=== PATIENT | female | born 1955 | race Caucasian/White ===

== ENCOUNTER → 2016-06-18 | Outpatient (CLI) | payer OTHER ==
--- NOTE | 2016-06-19 12:24 | MAMMOGRAPHY REPORT ---
BILATERAL DIGITAL SCREENING MAMMOGRAM TOMOSYNTHESIS WITH CAD: 06/18/2016 CLINICAL HISTORY: Routine screening. Patient has no complaints. TECHNIQUE: Breast tomosynthesis in addition to standard 2D mammography was performed. Current study was also evaluated with a Computer Aided Detection (CAD) system. COMPARISON: Comparison is made to exams dated: 06/17/2015 mammogram, 12/17/2014 mammogram - [facility], 07/15/2014 mammogram - [facility], and 12/17/2014 ultrasound - [facility]. BREAST COMPOSITION: There are scattered areas of fibroglandular density in both breasts. FINDINGS: There is possible architectural distortion in the 12:00 middle one third of the right cassie ast (best seen on CC tomosynthesis slice 57/83), for which additional spot compression tomosynthesis views with a small paddle and possibly ultrasound are recommended. There is a possible clustered m icrocalcifications in the 12:00 to 1:00 posterior left breast, warranting additional spot magnificat ion views. No other suspicious mass, architectural distortion or cluster of microcalcifications is seen bilater ally. IMPRESSION: ACR BI-RADS CATEGORY 0: INCOMPLETE EVALUATION: NEED ADDITIONAL IMAGING EVALUATION The possible architectural distortion in the 12:00 right breast, and possible cluster of microcalcif ications in the 12:00 to 1:00 posterior left breast need additional imaging evaluation. The patient will be called to schedule an appointment. Approximately 10% of breast cancers are not detected with mammography. A negative mammographic repor t should not delay biopsy if a clinically suggestive mass is present. Chata Arciniega M.D. ay/:06/18/2016 16:35:10 Entomology Professor: Lottie LAYNE(Braeden)(Tim)(BD), [facility] letter sent: Addl Imaging 0 BI-RADS Code: ACR BI-RADS Category 0: Incomplete Evaluation: Need Additional Imaging Evaluation
== END | disposition home or self-care (01) ==
LOC: C.MAMM 14:25
PROVIDERS: ATTEND Family Medicine
DX: Z12.31 Encounter for screening mammogram for malignant neoplasm of breast (principal); R92.8 Other abnormal and inconclusive findings on diagnostic imaging of breast

== ENCOUNTER → 2016-06-28 | Outpatient (CLI) | payer OTHER ==
--- NOTE | 2016-06-28 13:16 | MAMMOGRAPHY REPORT ---
BILATERAL DIGITAL DIAGNOSTIC MAMMOGRAM TOMOSYNTHESIS AND TARGETED RIGHT ULTRASOUND: 06/28/2016 CLINICAL HISTORY: Callback from screening mammogram for possible right breast architectural distorti on and left breast calcifications. TECHNIQUE: Breast tomosynthesis in addition to standard 2D mammography was performed. Spot salvador oracio right CC and MLO tomosynthesis images including C views, spot magnification left CC and ML view s, and right CC and MLO tomosynthesis images including C views were obtained. COMPARISON: Comparison is made to exams dated: 06/18/2016 mammogram, 06/17/2015 mammogram, 06/17/2015 ultrasound - [facility], 07/15/2014 mammogram - [facility], 12/17/2014 ultrasound , and 12/17/2014 mammogram - [facility]. BREAST COMPOSITION: There are scattered areas of fibroglandular density in both breasts. FINDINGS: There is a persistent area of possible subtle distortion seen within the right 12:[address] on the spot compression tomosynthesis views, without an associated mass seen. Spot magnification views of the left breast demonstrate a cluster of 3 calcifications in the left upper outer quadrant . The cluster is stable compared to the 06/17/2015 exam, and the largest calcification in the cluste r is very coarse and benign in appearance and is stable compared to multiple prior exams including t 2013 exam. Given the stability and benign morphology, the calcifications are felt to be benign. Targeted ultrasound was performed of the right 12:00 breast in the region of the possible architectu ral distortion. The breast tissue is heterogeneous on ultrasound. There is a vague subtle hypoecho ic ill-defined region in the right breast at 12:00, 3 cm from the nipple, measuring 7 x 5 mm. A BB was placed on the skin at the site of the finding and repeat right CC and MLO views were obtained. The BB aligns with the area of distortion on the MLO view, however, it does not line up with the are a on the cc view. Given that the ultrasound finding does not line up with the distortion on both vi ews, it may not correlate. Recommend bilateral breast MRI for further evaluation. IMPRESSION: ACR BI-RADS CATEGORY 0: INCOMPLETE EVALUATION: NEED ADDITIONAL IMAGING EVALUATION, TAR GETED ULTRASOUND ACR BI-RADS CATEGORY 0: INCOMPLETE EVALUATION: NEED ADDITIONAL IMAGING EVALUATION 1. Persistent area of possible architectural distortion within the right 12:00 breast mammographica lly. An ill-defined 7 mm hypoechoic region is seen on ultrasound, which does not clearly correlate with the mammographic distortion. Recommend bilateral breast MRI to further evaluate the possible a rchitectural distortion seen mammographically. 2. Small cluster of calcifications in the left upper outer quadrant is considered benign given stab ility and benign morphology. The patient has been verbally notified of the results. Approximately 10% of breast cancers are not detected with mammography. A negative mammographic repor t should not delay biopsy if a clinically suggestive mass is present. Claudette Reynolds M.D. ah/:06/28/2016 11:02:30 Supervisor Heavy Equipment: Yoly LAYNE(R)(M), [facility] letter sent: Addl Imaging 0 BI-RADS Code: ACR BI-RADS Category 0: Incomplete Evaluation: Need Additional Imaging Evaluation Ul trasound BI-RADS: ACR BI-RADS Category 0: Incomplete Evaluation: Need Additional Imaging Evaluation
== END | disposition home or self-care (01) ==
LOC: C.MAMM 08:58
PROVIDERS: ATTEND Family Medicine
DX: R92.2 Inconclusive mammogram (principal); R92.1 Mammographic calcification found on diagnostic imaging of breast

== ENCOUNTER → 2016-07-24 | Outpatient (CLI) | payer OTHER ==
[~2016-07-24] MED LIST: GADAVIST IV PRN
--- NOTE | 2016-07-25 12:40 | CODING QUERY NO DIAGNOSIS ---
TREATMENT RENDERED WITHOUT A DIAGNOSIS To promote full compliance with coding requirements relating to patient care, physician participation is requested in all cases of faculty support coordinator uncertainty. Please assist us with providing a diagnosis/symptom for the test(s) below: A diagnosis/symptom was not documented on your Order. A valid diagnosis/symptom is required to bill all insurances. Please remember that we are unable to code a diagnosis of rule out, probable, possible, questionable, or suspected. Tests that require a diagnosis: * MRI BREAST BILATERAL COMBO DIAGNOSIS: Provider Signature: Date: Thank you [facility] [employer] Once completed, please kindly fax back to [phone] For questions please call [phone]
--- NOTE | 2016-07-26 07:55 | MAMMOGRAPHY REPORT ---
BREAST MRI OF BOTH BREASTS : 07/24/2016 CLINICAL HISTORY: 61-year-old woman called back from screening mammography for possible architectura l distortion in the 12:00 right breast. The distortion was felt to persist with additional spot com pression tomosynthesis views but no sonographic correlate was identified. She presents for breast M RI to assess for any suspicious enhancing mass in the location. COMPARISON: Comparison is made to exams dated: 06/28/2016 mammogram, 06/18/2016 mammogram, 06/17/2015 m ammogram, 06/17/2015 ultrasound, 12/17/2014 ultrasound, and 12/17/2014 mammogram - [facility]. TECHNIQUE: Using a 1.5 Ira magnet and dedicated breast coil, multisequence axial images were obtai bucky through the breasts. After uneventful IV administration of 9 mL of Gadavist, dynamic multiphase contrast-enhanced axial images, and sagittal postcontrast were obtained. Temporal subtraction axia l images and 3-D MIP images are provided. Everything was then reviewed on a 3-D workstation, [employer]. FINDINGS: Right breast: There is moderate background parenchymal enhancement of the right breast with numerous enhancing foci scattered throughout the breast. There is a subtle focal area of architectural dist ortion in the 12:00 middle to anterior right breast. The distortion is best appreciated on the T1 n onfat saturated image 70, but this lesion is also seen on sagittal image 111/144 and axial image 36/ 124. There is patchy enhancement within the area of distortion, with mixed persistent and plateau k inetics. The patchy associated enhancement measures 10-11 mm in maximum dimension. This distortion correlates with the mammographic finding and is suspicious for malignancy. Definitive characteriza tion with an MRI guided biopsy is recommended, given that prior ultrasound in the 12:00 right breast was unyielding. There is another conspicuous enhancing focus/mass in the upper outer middle one th ird of the right breast (axial image 47/124, sagittal image 127/144) that has irregular borders michelle g the medial aspect and has mixed persistent, plateau and washout kinetics. It measures 4 x 6 mm an d appears isointense on the corresponding T2 sequence, and does not meet definitive criteria for a b enign lymph node. This is also indeterminate, warranting MRI guided biopsy. None of the other foci of enhancement throughout the right breast irregular borders or suspicious washout and air probably within the range. There is no focal right breast skin thickening or nipple retraction. The retrom ammary fat is intact. No suspicious right axillary lymphadenopathy is identified. Left breast: There is moderate background parenchymal enhancement of the left breast. There are num erous foci of enhancement throughout the left breast. The foci of enhancement of the left breast al l appear round to ovoid in shape and none demonstrate irregular borders or have associated java architect ural distortion. These likely represent benign fibrocystic changes. There is no suspicious non-mas s enhancement or a suspicious enhancing mass within the left breast. No skin thickening or nipple r etraction. No suspicious left axillary lymphadenopathy. IMPRESSION: ACR BI-RADS CATEGORY 4B: INTERMEDIATE SUSPICION FOR MALIGNANCY 1. MRI guided biopsy is recommended for subtle focal area of architectural distortion and associate d patchy non-mass enhancement in the 12:00 anterior right breast. MRI guided guided warranted given that the prior targeted ultrasound in the 12:00 left breast was unyielding as to definitive sonogra phic correlate, would want to ensure adequate tissue sampling of the lesion. 2. Although there is moderate background parenchymal enhancement with numerous scattered foci of en hancement in both breasts, one focus/mass measuring 4 x 6 mm in the upper outer middle one third of the right breast has irregular borders and mixed associated kinetics. This is also indeterminate, w arranting MRI guided biopsy, which could be performed at the same time of biopsy of the architectura l distortion in the 12:00 breast. 3. Numerous scattered foci of enhancement within the left breast, nearly all of which appear round to ovoid in shape, and have a benign MRI appearance. Nevertheless, pending pathology results, would recommend a short interval follow-up breast MRI to ensure stability in 6 months. 4. No suspicious axillary or subpectoral lymphadenopathy bilaterally. The patient will be called to schedule an appointment. Chata Arciniega M.D. ay/:07/25/2016 21:34:57 Medical Care Administrator: windows server support technician, [facility] letter sent: Abnormal /5 BI-RADS Code: ACR BI-RADS Category 4B: Intermediate Suspicion For Malignancy
== END | disposition home or self-care (01) ==
LOC: C.MRI 08:59
PROVIDERS: ATTEND Family Medicine
DX: R92.8 Other abnormal and inconclusive findings on diagnostic imaging of breast (principal)